=== PATIENT | male | born 1965 | race Caucasian/White ===

== ENCOUNTER 2020-06-03 14:20 | Outpatient (CLI) | payer OTHER, SELFPAY ==
--- NOTE | 2020-06-03 14:30 | CT_ITS ---
WS: [id number] CT LUMBAR SPINE, noncontrast. HISTORY: LOWER BACK PAIN TECHNIQUE: Contiguous 2.5 mm axial imaging are performed. Sagittal and coronal reformats are submitte d and reviewed. All CT scans at [facility] use at least one of these dose optimization te chniques: automated exposure control; mA and/or kV adjustment per patient size (includes targeted exa ms where dose is matched to clinical indication); or iterative reconstruction. IV contrast: None DLP: 2120.52 mGycm COMPARISON: None available. Very mild LEFT convex curvature the lumbar spine. Mild straightening of the posterior vertebral riccardo s. Moderate disc space narrowing and desiccation with vacuum disc phenomenon at L5-S1. Endplate osteo phytes extend anterior and posterior from the L5 and S1 vertebral bodies. No fractures or pars defect s. L1-2: Normal. L2-3: Mild osteophytic ridging greatest to the LEFT. No stenosis. L3-4: Mild annular disc bulging and osteophytic ridging. Very shallow broad-based LEFT foraminal disc protrusion without contact on the nerve root. L4-5: Mild annular disc bulging and mild osteophytic ridging. There is a central broad-based disc pro trusion extending to the LEFT. Mild ligamentum flavum disease and hypertrophy of the facet joints. Mi ld central, subarticular recess and LEFT foraminal stenosis. Moderate RIGHT foraminal stenosis due to disc disease predominantly. L5-S1: Diffuse annular disc bulging with osteophytic ridging extending greatest to the LEFT. There ar e large osteophytes encroaching into the LEFT subarticular recess and foramen. Complete effacement of fat. Disc osteophyte contacting the LEFT S1 nerve root. Only mild narrowing of the RIGHT foramen. Mild atherosclerosis aorta. Ectatic RIGHT common iliac artery. Mild narrowing of the SI joints bilate rally. CT/CT lumbar spine wo con* [id number] IMPRESSION: 1. Severe LEFT subarticular and foraminal stenosis at L5-S1 due to combination of large osteophytes and disc protrusion. 2. Mild central, subarticular recess and LEFT foraminal stenosis at L4-5 due t o disc osteophyte disease. 3. Moderate RIGHT foraminal stenosis at L4-5.
== END 2020-06-03 14:21 | disposition home or self-care (01) ==
LOC: RADWPI 14:24
PROVIDERS: PCP Nurse Practitioner; Visit Provider Nurse Practitioner
DX: M48.07 Spinal stenosis, lumbosacral region (principal); M25.78 Osteophyte, vertebrae; M51.27 Other intervertebral disc displacement, lumbosacral region; M48.061 Spinal stenosis, lumbar region without neurogenic claudication
CPT/HCPCS: 72131

== ENCOUNTER 2020-12-02 15:49 | Outpatient (CLI) | payer OTHER, SELFPAY ==
--- NOTE | 2020-12-02 16:00 | MR_ITS ---
WS: [id number] MRI LUMBAR SPINE NONCONTRAST HISTORY: BACK PAIN WITH RADICULOPATHY/SPINAL STENOSIS LUMBAR REGION COMPARISON: CT 06/03/2020 TECHNIQUE: Sagittal and axial multisequence imaging is submitted. Mild encroachment and narrowing of the cervical canal at the C5-C6 level due to disc and osteophyte a nd facet arthritis. Mild straightening of the normal lumbar lordosis with mild LEFT curvature. Mild disc space narrowing and desiccation most significant at L4-5 and L5-S1. No acute marrow edema o r fracture. Conus terminates normally at L1. L1-L2: Normal. L2-L3: Mild annular disc bulging with mild facet joint arthritis. No stenosis. L3-L4: Mild asymmetric annular disc bulging extending greatest into the LEFT foramen. There is also m ild ligamentum flavum and facet arthritis. Mild LEFT foraminal stenosis without central stenosis. L4-L5: Deformity of the thecal sac due to combination of the scoliosis, asymmetric disc bulging and f acet arthritis. There is moderate central stenosis with severe bilateral lateral recess stenosis. The L5 nerve root is being compressed and displaced. There is also a central disc protrusion contributin g to the stenosis and nerve root encroachment. Mild bilateral foraminal stenosis, RIGHT greater than LEFT. L5-S1: Mild diffuse asymmetric disc bulging greatest to the LEFT. Moderate ligamentum flavum disease and facet arthritis. There is a moderate amount of fluid in the facet joints bilaterally. There is a focal disc with annular fissure LEFT paracentral into the subarticular recess and foramen. This may b e an extruded disc or protrusion. Complete effacement of fat and displacement of the nerve roots on t he LEFT involving S1 and also L5. Complete obliteration of fat in the foramen and subarticular recess mild stenosis on the RIGHT. LEFT renal cyst measures 2.5 cm. Mild atherosclerosis aorta. Mild bilateral foraminal stenosis at L4-5, RIGHT greater than LEFT. Mild LEFT curvature lumbar spine. MR/MR lumbar spine wo con* [id number] IMPRESSION: 1. Moderate central stenosis with severe bilateral lateral recess stenosis at L4-5. The RIGHT L5 nerve root is being compressed and displaced greater than th e LEFT. 2. Severe LEFT subarticular and foraminal stenosis with disc and osteophyte en croachment upon the LEFT L5 and S1 nerve roots. There is also a component of th e disc protrusion versus extruded disc LEFT paracentral with annular fissure. O nly mild RIGHT foraminal stenosis.
== END 2020-12-02 15:50 | disposition home or self-care (01) ==
LOC: RADSHAW 15:50
PROVIDERS: PCP Nurse Practitioner; Visit Provider Surgery
DX: M54.16 Radiculopathy, lumbar region; M48.061 Spinal stenosis, lumbar region without neurogenic claudication; M25.78 Osteophyte, vertebrae; M51.26 Other intervertebral disc displacement, lumbar region
CPT/HCPCS: 72148

== ENCOUNTER → 2021-06-30 09:58 | Outpatient (BNVA) | payer OTHER, SELFPAY | PROVIDERS: PCP Nurse Practitioner; Referring Provider Nurse Practitioner; Visit Provider Internal Medicine | DX: E11.69 Type 2 diabetes mellitus with other specified complication (principal); E11.40 Type 2 diabetes mellitus with diabetic neuropathy, unspecified; E78.5 Hyperlipidemia, unspecified; E03.9 Hypothyroidism, unspecified; Z87.891 Personal history of nicotine dependence; Z79.4 Long term (current) use of insulin | CPT/HCPCS: 99204 ==

== ENCOUNTER → 2021-11-10 10:27 | Outpatient (BNVA) | payer OTHER, SELFPAY | PROVIDERS: PCP Nurse Practitioner; Visit Provider Internal Medicine | DX: E11.69 Type 2 diabetes mellitus with other specified complication (principal); E11.40 Type 2 diabetes mellitus with diabetic neuropathy, unspecified; E78.5 Hyperlipidemia, unspecified; E03.9 Hypothyroidism, unspecified; Z79.4 Long term (current) use of insulin; Z79.84 Long term (current) use of oral hypoglycemic drugs; Z87.891 Personal history of nicotine dependence | CPT/HCPCS: 99214 ==

== ENCOUNTER → 2021-12-29 09:32 | Outpatient (BNVA) | payer OTHER, SELFPAY | PROVIDERS: PCP Nurse Practitioner; Visit Provider Otolaryngology | DX: H90.3 Sensorineural hearing loss, bilateral (principal); H93.13 Tinnitus, bilateral; Z87.891 Personal history of nicotine dependence | CPT/HCPCS: 99203 ==

== ENCOUNTER 2022-02-09 14:57 | Outpatient (CLI) | payer OTHER, SELFPAY ==
--- NOTE | 2022-02-09 15:15 | MR_ITS ---
WS: [id number] MRI HEAD WITH CONTRAST WITH ATTENTION TO THE INTERNAL AUDITORY CANALS TECHNIQUE: Sagittal T1, T2 axial, T2 axial flair, axial susceptibility weighted imaging, axial diffus ion weighted images, and coronal T2 images were obtained. Pre and post T1 axial and post T1 coronal i mages. ADC and FSPGR images. Post gadolinium images with attention to the internal auditory canals. A xial fiesta imaging. CLINICAL INFORMATION: H90.3 - Sensorineural hearing loss, bilateral COMPARISON: None. FINDINGS: No evidence of restricted diffusion to suggest acute ischemia. Ventricular system and basal cisterns are patent. Mild small vessel changes. Moderate parenchymal volume loss. Normal posterior fossa. Norm al vascular flow voids at the skull base. No extra axial fluid collections. No evidence of mass or ma ss effect. Paranasal sinuses and mastoid air cells are well aerated. No hemosiderin on the susceptibi lity weighted images. Proximal 7th and 8th cranial nerves are normal in appearance. Normal trigeminal nerve root entry zone s. No evidence of enhancing IAC or CP angle mass. Normal optic chiasm and pituitary infundibulum. Nor mal cavernous sinuses and Meckel's cave. No abnormal intracranial enhancement. Normal visualized dura l venous sinuses. MR/MR iac's wo/w con* [id number] IMPRESSION: 1. No evidence of restricted diffusion to suggest acute ischemia. 2. Mild small vessel changes with moderate parenchymal volume loss. 3. Proximal 7th and 8th cranial nerves are normal in appearance. No evidence o f enhancing IAC or CP angle mass. Normal trigeminal nerve root entry zones. 4. Paranasal sinuses and mastoid air cells are well aerated. 5. No abnormal intracranial enhancement.
== END 2022-02-09 14:58 | disposition home or self-care (01) ==
LOC: RAD 14:59
PROVIDERS: PCP Nurse Practitioner; Visit Provider Otolaryngology
DX: H90.3 Sensorineural hearing loss, bilateral (principal); H93.13 Tinnitus, bilateral
CPT/HCPCS: 70553; 99214; A9579

== ENCOUNTER → 2022-05-16 15:22 | Outpatient (BNVA) | payer OTHER, SELFPAY | PROVIDERS: PCP Nurse Practitioner; Visit Provider Internal Medicine | DX: E11.69 Type 2 diabetes mellitus with other specified complication (principal); E11.40 Type 2 diabetes mellitus with diabetic neuropathy, unspecified; E78.5 Hyperlipidemia, unspecified; E03.9 Hypothyroidism, unspecified; Z79.84 Long term (current) use of oral hypoglycemic drugs; Z87.891 Personal history of nicotine dependence | CPT/HCPCS: 99214 ==

== ENCOUNTER → 2023-05-08 08:21 | Outpatient (BNVA) | payer OTHER, SELFPAY | PROVIDERS: PCP Nurse Practitioner; Visit Provider Internal Medicine | DX: E11.69 Type 2 diabetes mellitus with other specified complication (principal); E78.5 Hyperlipidemia, unspecified; E11.40 Type 2 diabetes mellitus with diabetic neuropathy, unspecified; E03.9 Hypothyroidism, unspecified; Z79.4 Long term (current) use of insulin; Z79.84 Long term (current) use of oral hypoglycemic drugs; Z79.890 Hormone replacement therapy | CPT/HCPCS: 36415; 82306; 82550; 84439; 84443; 99214 ==

== ENCOUNTER → 2023-10-07 09:12 | Outpatient (BNVA) | payer OTHER, SELFPAY | PROVIDERS: PCP Nurse Practitioner; Visit Provider Internal Medicine | DX: E11.69 Type 2 diabetes mellitus with other specified complication; E78.5 Hyperlipidemia, unspecified; E11.40 Type 2 diabetes mellitus with diabetic neuropathy, unspecified; E03.9 Hypothyroidism, unspecified; Z79.890 Hormone replacement therapy; Z79.84 Long term (current) use of oral hypoglycemic drugs; Z79.4 Long term (current) use of insulin | CPT/HCPCS: 99214 ==

== ENCOUNTER → 2023-10-24 09:41 | Outpatient (BNVA) | payer OTHER, SELFPAY | PROVIDERS: PCP Nurse Practitioner; Visit Provider Podiatrist Foot & Ankle Surgery | DX: L60.3 Nail dystrophy (principal); E11.40 Type 2 diabetes mellitus with diabetic neuropathy, unspecified; L84 Corns and callosities; E11.69 Type 2 diabetes mellitus with other specified complication; Z79.4 Long term (current) use of insulin; Z79.84 Long term (current) use of oral hypoglycemic drugs | CPT/HCPCS: 11056; 11721; 99203 ==

== ENCOUNTER → 2023-12-26 10:30 | Outpatient (BNVA) | payer OTHER, SELFPAY | PROVIDERS: PCP Nurse Practitioner; Visit Provider Podiatrist Foot & Ankle Surgery | DX: E11.40 Type 2 diabetes mellitus with diabetic neuropathy, unspecified (principal); L60.3 Nail dystrophy; L84 Corns and callosities; Z79.84 Long term (current) use of oral hypoglycemic drugs; Z79.4 Long term (current) use of insulin | CPT/HCPCS: 11056; 11721 ==

== ENCOUNTER → 2024-01-06 12:32 | Outpatient (BNVA) | payer OTHER, SELFPAY | PROVIDERS: PCP Nurse Practitioner; Referring Provider Nurse Practitioner; Visit Provider Dermatology | DX: L72.0 Epidermal cyst (principal); L81.4 Other melanin hyperpigmentation; L57.3 Poikiloderma of Civatte; L57.8 Other skin changes due to chronic exposure to nonionizing radiation | CPT/HCPCS: 10060; 99213 ==

== ENCOUNTER → 2024-03-05 08:35 | Outpatient (BNVA) | payer OTHER, SELFPAY | PROVIDERS: PCP Nurse Practitioner; Visit Provider Dermatology | DX: D48.5 Neoplasm of uncertain behavior of skin (principal) | CPT/HCPCS: 11406; 12034 ==

== ENCOUNTER → 2024-03-09 08:40 | Outpatient (BNVA) | payer OTHER, SELFPAY | PROVIDERS: PCP Nurse Practitioner; Visit Provider Podiatrist Foot & Ankle Surgery | DX: L60.3 Nail dystrophy (principal); E11.40 Type 2 diabetes mellitus with diabetic neuropathy, unspecified; L84 Corns and callosities; Z79.84 Long term (current) use of oral hypoglycemic drugs; Z79.4 Long term (current) use of insulin | CPT/HCPCS: 11721 ==

== ENCOUNTER 2024-06-08 07:55 | Outpatient (CLI) | payer OTHER, SELFPAY ==
--- NOTE | 2024-06-08 07:59 | MR_ITS ---
WS: [id number] MRI LUMBAR SPINE NONCONTRAST TECHNIQUE: Sagittal T1, T2 and STIR imaging. Axial T1 and T2 imaging. CLINICAL INFORMATION: CONTINUED BACK PAIN W/CYST COMPARISON: MRI 2020 FINDINGS: Mild lumbar curve. No acute compression. Disc bulging worse at L4-L5 and L5-S1. L1-L2: Mild facet arthropathy. L2-L3: Mild facet arthropathy. Spinal canal and foramen are patent. L3-L4: Mild annular bulging. Small LEFT foraminal protrusion with mild LEFT foraminal narrowing. Mode rate facet arthropathy. Spinal canal is patent. L4-L5: Central LEFT paracentral disc protrusion with severe central canal stenosis is similar to prev ious. This appears slightly progressed. Mild to moderate RIGHT foraminal narrowing. L5-S1: Disc desiccation. LEFT subarticular protrusion impinges the LEFT S1 nerve root in the subartic ular recess. This is progressed compared to previous. Severe LEFT foraminal narrowing. Mild to modera te RIGHT foraminal narrowing. Moderate facet arthropathy. Visualized pelvic bony structures: Normal. Paravertebral soft tissues: Normal. Partially visualized RIGHT renal cyst. MR/MR lumbar spine wo con* [id number] IMPRESSION: 1. Severe central canal stenosis L4-5 similar to previous slightly progressed. 2. Severe LEFT L5-S1 foraminal narrowing. 3. Disc osteophyte complex L5-S1 impinges the LEFT L5 nerve root progressed co mpared to previous. 4. Small LEFT foraminal protrusion L3-4 with mild LEFT foraminal narrowing. 5. Mild to moderate RIGHT L4-5 foraminal narrowing appears progressed.
== END 2024-06-08 07:56 | disposition home or self-care (01) ==
LOC: RAD 07:56
PROVIDERS: PCP Nurse Practitioner; Visit Provider Nurse Practitioner
DX: M47.896 Other spondylosis, lumbar region (principal); M99.63 Osseous and subluxation stenosis of intervertebral foramina of lumbar region; M25.78 Osteophyte, vertebrae; M51.36 Other intervertebral disc degeneration, lumbar region
CPT/HCPCS: 72148

== ENCOUNTER → 2024-06-29 08:42 | Outpatient (BNVA) | payer OTHER, SELFPAY | PROVIDERS: PCP Nurse Practitioner; Visit Provider Podiatrist Foot & Ankle Surgery | DX: L60.3 Nail dystrophy; E11.40 Type 2 diabetes mellitus with diabetic neuropathy, unspecified; L84 Corns and callosities; E11.69 Type 2 diabetes mellitus with other specified complication; Z79.4 Long term (current) use of insulin; Z79.84 Long term (current) use of oral hypoglycemic drugs | CPT/HCPCS: 11056; 11721 ==

== ENCOUNTER → 2024-11-12 08:52 | Outpatient (BNVA) | payer OTHER, SELFPAY | PROVIDERS: PCP Nurse Practitioner; Visit Provider Podiatrist Foot & Ankle Surgery | DX: E11.40 Type 2 diabetes mellitus with diabetic neuropathy, unspecified (principal); L60.3 Nail dystrophy; L84 Corns and callosities; Z79.84 Long term (current) use of oral hypoglycemic drugs; Z79.4 Long term (current) use of insulin | CPT/HCPCS: 11056; 11721 ==

== ENCOUNTER → 2025-02-08 09:54 | Outpatient (BNVA) | payer OTHER, SELFPAY | PROVIDERS: PCP Nurse Practitioner; Referring Provider Nurse Practitioner; Visit Provider Student in an Organized Health Care Education/Training Program | DX: Z12.11 Encounter for screening for malignant neoplasm of colon (principal) | CPT/HCPCS: 99204 ==

== ENCOUNTER 2025-03-30 06:39 | Day surgery (SDC) | payer OTHER, SELFPAY ==
[2025-03-30 06:57] VITALS: BP 118/74; PULSE 85; RESP 18; TEMP 36.3; O2SAT 97; BMI 27.9
--- NOTE | 2025-03-30 07:31 | ANES.PREANE2 ---
Pre-Anesthetic Assessment Height/Weight: Height 1.78 m Weight 88.451 kg Temp Pulse Resp BP Pulse Ox O2 Del Method 97.3 F L 85 18 118/74 97 Room Air 03/30/25 06:57 03/30/25 06:57 03/30/25 06:57 03/30/25 06:57 03/30/25 06:57 03/30/25 06:57 Preop Diagnosis: Screening Operation Date: 03/30/25 07:45 Proposed Procedures p Colonoscopy 07973 G0121, Z12.11(Not Applicable) - Bartolo Castano MD Was Beta Lev taken within 24 hours: N/A Was Clonidine taken within 24 hours: N/A Last intake: Intake Last Liquid Date 03/29/25 Last Liquid Time 22:30 Last Solid Date 03/28/25 Last Solid Time 17:00 Social No alcohol and No tobacco Exam alert, oriented x 3, clear to auscultation bilaterally and regular rate & rhythm Airway Submandibular: within normal limits Cervical ROM: within normal limits Mallampati: Class II Dentition: full History/ROS No significant history except as noted and No significant complaints Pulmonary Chronic Obstructive Pulmonary Disease CV/HEM Hypertension and Murmur None reported Hepatic None reported GI None reported Metabolic Diabetes Mellitus and Thyroid Disease [facility] None reported Neuropsych None reported Anesthetic Plan ASA status: 3 Anesthesia: Anesthesia Evaluation and MAC Risk of > 500 ml blood loss (7ml/kg in children): No Medications/Allergies Home Medications ?Medication ?Instructions ?Recorded ?Confirmed ?Last Taken ?Type furosemide 20 mg tablet 20 mg PO DAILY 09/10/19 03/30/25 03/29/25 History hydrochlorothiazide 25 mg tablet 25 mg PO DAILY 09/10/19 03/30/25 03/29/25 History lisinopril 40 mg tablet 40 mg PO DAILY 09/10/19 03/30/25 03/29/25 History potassium chloride 20 mEq 20 meq PO DAILY 11/10/21 03/30/25 03/29/25 History tablet,extended release pregabalin 75 mg capsule 150 mg PO BID 11/10/21 03/30/25 03/29/25 History rosuvastatin 10 mg tablet 10 mg PO DAILY 11/10/21 03/30/25 03/29/25 History glimepiride 4 mg tablet 4 mg PO DAILY #90 tabs 07/16/23 03/30/25 03/29/25 Rx levothyroxine 137 mcg tablet See Rx Instructions .Route 07/16/23 03/30/25 03/29/25 Rx (Synthroid) .COMPLEX #90 caps metformin 1,000 mg tablet,extended 1,000 mg PO BID 90 days #180 tabs 07/16/23 03/30/25 03/29/25 Rx release 24hr (osmotic) semaglutide 1 mg/dose (4 mg/3 mL) 1 mg (0.75 mL) SUBCUT Q7D 90 days 07/16/23 03/30/25 03/21/25 Rx subcutaneous pen injector (Ozempic) #9 mL diabetic shoes with 3 inserts #1 ea 08/11/24 03/24/25 Unknown Rx Allergies Allergy/AdvReac Type Severity Reaction Status Date / Time No Known Allergies Allergy Verified 03/30/25 06:52 Current Medications Generic Name Dose Route Start Last Admin Trade Name Freq PRN Reason Stop Dose Admin Sodium Chloride 1,000 mls @ 15 mls/hr 03/30/25 06:48 03/30/25 07:09 Sodium Chloride 0.9% IV 03/31/25 06:47 15 mls/hr .Q24H PRN Administration COLONOSCOPY FLUIDS PFSH Anesthesia Medical History COVID-19 Degenerative disc disease Diabetes Hypothyroidism (acquired) Osteoarthritis IBS (irritable bowel syndrome) COPD (chronic obstructive pulmonary disease) Hypertension Hyperlipidemia associated with type 2 diabetes mellitus Surgical History History of cholecystectomy History of open heart surgery Family History Unknown Hyperlipidemia Father No problems noted. Mother History of partial knee replacement Social History Smoking and tobacco/nicotine status: never used tobacco/nicotine Quit status (tobacco/nicotine): has quit using Second hand smoke exposure: Yes Alcohol intake: never Substance/Drug Use: never Adopted: No Caregiver/support person: No Lives independently: Yes Household members: spouse Housing: House Marital status: Number of children: 5 Number of grandchildren: 10 Highest education level completed: Bachelor's Degree service: Yes Current occupational status: employed Sexually active: No Do you think of yourself as: Straight/Heterosexual Current gender identity: Male Agree to transfusion: Yes
--- NOTE | 2025-03-30 07:51 | W.PM.OPSFHP ---
Same Day Surgery H&P Indication for Procedure/HPI DATE OF PROCEDURE: March 30, 2025 CHIEF COMPLAINT/INDICATIONFOR SURGICAL PROCEDURE: screening colonoscopy PREOP DIAGNOSIS: screening colonoscopy PLANNED PROCEDURE: Operation Date: 03/30/25 07:45 Proposed Procedures p Colonoscopy [id number] G0121, Z12.11(Not Applicable) - Bartolo Castano MD Medications/Allergies* Home Medications ?Medication ?Instructions ?Recorded ?Confirmed ?Type furosemide 20 mg tablet 20 mg PO DAILY 09/10/19 03/30/25 History hydrochlorothiazide 25 mg tablet 25 mg PO DAILY 09/10/19 03/30/25 History lisinopril 40 mg tablet 40 mg PO DAILY 09/10/19 03/30/25 History potassium chloride 20 mEq 20 meq PO DAILY 11/10/21 03/30/25 History tablet,extended release pregabalin 75 mg capsule 150 mg PO BID 11/10/21 03/30/25 History rosuvastatin 10 mg tablet 10 mg PO DAILY 11/10/21 03/30/25 History Allergies/Adverse Reactions Allergy/AdvReac Type Severity Reaction Status Date / Time No Known Allergies Allergy Verified 03/30/25 06:52 Current Medications: Generic Name Dose Route Start Last Admin Trade Name Freq PRN Reason Stop Dose Admin Sodium Chloride 1,000 mls @ 15 mls/hr 03/30/25 06:48 03/30/25 07:09 Sodium Chloride 0.9% IV 03/31/25 06:47 15 mls/hr .Q24H PRN Administration COLONOSCOPY FLUIDS Pertinent History/Comorbid Conditions* Medical History (Updated 10/24/23 @ 10:30 by Marco Decker DPM) COVID-19 Degenerative disc disease Diabetes Hypothyroidism (acquired) Osteoarthritis IBS (irritable bowel syndrome) COPD (chronic obstructive pulmonary disease) Hypertension Hyperlipidemia associated with type 2 diabetes mellitus Surgical History (Updated 07/02/21 @ 17:57 by Angeline Shin MD) History of cholecystectomy History of open heart surgery Family History (Updated 06/30/21 @ 10:22 by Chana Suero LPN) Father Hyperlipidemia Unknown History of partial knee replacement Mother Social History Smoking and tobacco/nicotine status: never used tobacco/nicotine Quit status (tobacco/nicotine): has quit using Second hand smoke exposure: Yes Alcohol intake: never Substance/Drug Use: never Adopted: No Caregiver/support person: No Lives independently: Yes Household members: spouse Housing: House Marital status: Number of children: 5 Number of grandchildren: 10 Highest education level completed: Bachelor's Degree service: Yes Current occupational status: employed Sexually active: No Do you think of yourself as: Straight/Heterosexual Current gender identity: Male Agree to transfusion: Yes Pertinent Exam Findings alert, oriented x 3, clear to auscultation bilaterally, regular rate & rhythm and procedure specific exam findings Recommendations Risks and benefits of procedure reviewed and Patient/family agree to proceed Surgery/Procedure today Coding Level of Care Code Acute Code for Chg Fwd
--- NOTE | 2025-03-30 08:14 | SUR.OPER ---
cecum time 0806 to 0811
[2025-03-30 08:17] VITALS: BP 91/62; PULSE 90; RESP 18; TEMP 36.1; O2SAT 93
[2025-03-30 08:33] VITALS: BP 99/57; PULSE 89; RESP 18; O2SAT 95
--- NOTE | 2025-03-30 16:02 | ANE.PACU2 ---
Inpatient post-anesthesia follow up: Airway intact: Yes Vital signs: Temperature 97 F Pulse Rate 89 Respiratory Rate 18 Blood Pressure 99/57 Pulse Oximetry 95 Oxygen Delivery Me thod Room Air Oxygen Flow Rate Fraction of Inspir ed Oxygen Hydration adequate: Yes Nausea and vomiting: No Pain level: 1 Mental status: Baseline
== END 2025-03-30 08:53 | disposition home or self-care (01) ==
PROVIDERS: PCP Nurse Practitioner; Visit Provider Student in an Organized Health Care Education/Training Program
PROC: 0DJD8ZZ Inspection of Lower Intestinal Tract, Via Natural or Artificial Opening Endoscopic (ICD-10-PCS; CPT 45378; principal; 2025-03-30 07:45)
DX: Z12.11 Encounter for screening for malignant neoplasm of colon (principal); J44.9 Chronic obstructive pulmonary disease, unspecified; I10 Essential (primary) hypertension; E11.69 Type 2 diabetes mellitus with other specified complication; E78.49 Other hyperlipidemia; E03.9 Hypothyroidism, unspecified; Z79.899 Other long term (current) drug therapy; Z79.84 Long term (current) use of oral hypoglycemic drugs; Z79.85 Long-term (current) use of injectable non-insulin antidiabetic drugs; Z79.890 Hormone replacement therapy
CPT/HCPCS: 36416; 45378; 82962; J2704; J7030

== ENCOUNTER → 2025-04-08 09:57 | Outpatient (BNVA) | payer OTHER, SELFPAY | PROVIDERS: PCP Nurse Practitioner; Visit Provider Podiatrist Foot & Ankle Surgery | DX: E11.69 Type 2 diabetes mellitus with other specified complication (principal); L60.3 Nail dystrophy; E11.40 Type 2 diabetes mellitus with diabetic neuropathy, unspecified; L84 Corns and callosities; Z79.84 Long term (current) use of oral hypoglycemic drugs; Z79.85 Long-term (current) use of injectable non-insulin antidiabetic drugs | CPT/HCPCS: 11721; 99213 ==